=== PATIENT | male | born 1940 | race Caucasian/White ===

== ENCOUNTER → 2019-01-15 | Outpatient (CLI) | payer MEDICARE ==
[~2019-01-15] MED LIST: ASPI-630 PO; ATOR40TA59 PO; CARV6.2511 PO; ESCITALOPRAM OX10 MG PO; FLUT9.9S NS; GADOTERATE 7.5 MMOL/15ML VIAL. IVP ONE; HYDR12.58 PO; LEVO50TA PO; LOSA100T14 PO
--- NOTE | 2019-01-15 16:19 | KCIC ---
MRI of the Brain without and with Contrast 01/15/2019 Clinical History: Memory changes. Increased forgetfulness. Technique: Unenhanced T1-weighted sagittal and axial and FLAIR, T2-weighted, gradient echo and diffusion-weighted axial images of the brain were obtained. After the intravenous administration of 14 cc of Gadavist, enhanced T1-weighted axial and coronal images of the brain were obtained. Findings: Comparison study is dated 10/26/2014. There is generalized parenchymal atrophy. Patchy, confluent and multiple focal areas of abnormally increased signal intensity are seen within the periventricular and subcortical white matter of both cerebral hemispheres along with the shyla on the FLAIR and T2-weighted images consistent with areas of small vessel ischemic disease. No acute parenchymal abnormality is seen. No abnormal area of contrast enhancement is noted. No extra-axial fluid collection is seen. There is no MRI evidence of acute ischemia/infarction. Mild mucosal thickening is seen scattered throughout the paranasal sinuses. There is a minimal right mastoid effusion. Normal flow voids are seen within the major vascular structures surrounding the brain parenchyma. Impression: No acute parenchymal abnormality is seen. Electronically signed by: Troy Titus MD (01/15/2019 4:16 PM) [id number]
== END | disposition home or self-care (01) ==
LOC: KCIC MRI 14:11
PROVIDERS: ATTEND Physician Assistant Medical
DX: G31.89 Other specified degenerative diseases of nervous system (principal); H74.8X3 Other specified disorders of middle ear and mastoid, bilateral
CPT/HCPCS: 70553; A9575